=== PATIENT | female | born 1990 | race Caucasian/White ===

== ENCOUNTER 2024-09-24 15:15 | Emergency (ER) | payer SELFPAY ==
[2024-09-24] MEDS ORDERED: Sodium Chloride 0.9% 2.5 ML Syringe FLUSH PRN (15:37)
[2024-09-24] MEDS ORDERED: Sodium Chloride 0.9% 10 ML Syringe FLUSH PRN (15:37)
[2024-09-24] MEDS: Sodium Chloride 0.9% 1,000 ML IV ONE ×2 (15:52→19:02)
[2024-09-24 16:27] LABS: BASOPHILS ABSOLUTE AUTO 0.03 K/uL (0.00-0.20); BASOPHILS PERCENT AUTO 0.2 % (0.0-1.0); EOSINOPHILS ABSOLUTE AUTO 0.03 K/uL (0.00-0.45); EOSINOPHILS PERCENT AUTO 0.2 % (0.0-6.0); HEMOGLOBIN 13.3 g/dL (12.0-16.0); IMMATURE GRAN ABSOLUTE AUTO 0.04 K/uL (0.00-0.05); IMMATURE GRAN PERCENT AUTO 0.3 % (0.0-0.4); LYMPHOCYTES ABSOLUTE AUTO 0.85 K/uL (1.00-4.80); LYMPHOCYTES PERCENT AUTO 6.7 % (24.0-44.0); MEAN CORPUSCULAR HEMOGLOBIN 28.5 pg (28.0-32.0); MEAN CORPUSCULAR VOLUME 81.5 fL (83.0-99.0); MONOCYTES PERCENT AUTO 6.3 % (0.0-8.0); NEUTROPHILS ABSOLUTE AUTO 10.96 K/uL (1.80-7.70); NEUTROPHILS PERCENT AUTO 86.3 % (41.0-71.0); PLATELET COUNT,PLT 164 K/uL (150-400); RED BLOOD CELL COUNT 4.66 M/uL (4.10-5.30); WHITE BLOOD CELL COUNT,WBC 12.71 K/uL (3.9-11.3)
[2024-09-24 16:39] LABS: TSH ULTRASENSITIVE 0.61 uIU/mL (0.36-3.74)
[2024-09-24 16:51] LABS: A/G RATIO 0.5 (0.9-1.6); ALBUMIN 2.3 g/dL (3.4-5.0); BILIRUBIN TOTAL 0.6 mg/dL (0.2-1.0); CALCIUM 8.9 mg/dL (8.5-10.1); CARBON DIOXIDE,CO2 28.4 mmol/L (21.0-32.0); CREATININE 1.8 mg/dL (0.6-1.0); EST CRCL DRUG DOSING (CG) 36.09 mL/min; POTASSIUM,K 3.5 mmol/L (3.5-5.1); PROTEIN TOTAL,TP 6.7 g/dL (6.4-8.2)
[2024-09-24 16:58] LABS: APPEARANCE,URINE SLT CLOUDY; BILIRUBIN,URINE NEGATIVE (NEGATIVE); COLOR,URINE YELLOW; GLUCOSE,URINE NEGATIVE (NEGATIVE); KETONES,URINE NEGATIVE (NEGATIVE); LEUKOCYTE ESTERASE,URINE MODERATE (NEGATIVE); NITRITE,URINE NEGATIVE (NEGATIVE); OCCULT BLOOD,URINE MODERATE (NEGATIVE); PROTEIN,URINE 100 mg/dL (NEGATIVE)
[2024-09-24 17:20] LABS: BACTERIA,URINE 4+ (NEGATIVE); MUCUS,URINE LIGHT (NONE-MOD); SQUAMOUS EPITHELIAL CELLS,UR FEW; WBC,URINE 20-30 (0-5/HPF)
[2024-09-24 17:35] LABS: AMPHETAMINES SCREEN, URINE NEGATIVE (CUTOFF=500); BARBITURATE SCREEN,URINE NEGATIVE (CUTOFF=200); BENZODIAZEPINES SCREEN,URINE NEGATIVE (CUTOFF=150); BUPRENORPHINE SCREEN,URINE NEGATIVE (CUTOFF=10); METHADONE SCREEN, URINE NEGATIVE (CUTOFF=200); METHAMPHETAMINES SCREEN, URINE NEGATIVE (CUTOFF=500); OXYCODONE SCREEN,URINE NEGATIVE (CUT0FF=100); PCP SCREEN,URINE NEGATIVE (CUTOFF=25); THC SCREEN,URINE 20 NG/ML NEGATIVE (CUTOFF=50)
[2024-09-24] MEDS: Iopamidol 755 MG/ML 500 ML Multipack Bottle IVPUSH STA (18:01)
[2024-09-24] MEDS: cefTRIAXone 2 GM in Sodium Chloride 0.9% 50 ML IV ONE (19:03)
[2024-09-24] MEDS: Ketorolac 30 MG/ML SDV IVPUSH ONE (19:54)
[2024-09-24 19:57] LABS: CALCIUM 8.7 mg/dL (8.5-10.1); CARBON DIOXIDE,CO2 24.7 mmol/L (21.0-32.0); CREATININE 1.7 mg/dL (0.6-1.0); EST CRCL DRUG DOSING (CG) 38.21 mL/min; POTASSIUM,K 3.8 mmol/L (3.5-5.1)
[2024-09-24] MEDS: Acetaminophen 500 MG Tab PO ONE (20:33)
== END 2024-09-24 21:14 | disposition home or self-care (01) ==
LOC: MW.ED 15:15 → MERGE 15:15 → EDBD 15:15 → MW.ED 21:14
DX: N12 Tubulo-interstitial nephritis, not specified as acute or chronic (principal)
CPT/HCPCS: 36415; 71275; 74177; 80048; 80053; 80305; 81001; 81025; 84443; 85025; 87086; 87088; 87186; 87428; 93005; 93970; 96361; 96365; 96375; 99284; A9270; J0696; J1885; J3490; J7030; Q9967